=== PATIENT | male | born 1950 | race Two or more races ===

== ENCOUNTER 2021-02-04 16:52 | Emergency (ER) | payer OTHER ==
[~2021-02-04] VITALS: Ht 177.8 cm; Wt 77.1 kg
[2021-02-04 17:45] LABS: Basophils # (auto) 0.2 10 ^3/uL (0-0.2); Basophils % (auto) 2.3 % (0.0-2.0); Eosinophils # (auto) 0.2 10 ^3/uL (0-0.8); Eosinophils % (auto) 1.9 % (0.0-7.0); Hematocrit 48.1 % (41.0-53.0); Hemoglobin 16.3 g/dL (13.5-17.5); Lymphocytes # (auto) 2.8 10 ^3/uL (0.4-5.4); Lymphocytes % (auto) 29.4 % (10.0-50.0); Mean Corpuscular Hemoglobin 33.7 pg (28.0-32.0); Mean Corpuscular Volume 99.4 fL (80.0-100.0); Monocytes # (auto) 0.9 10 ^3/uL (0-1.3); Monocytes % (auto) 9.4 % (0.0-12.0); Neutrophils # (auto) 5.4 10 ^3/uL (1.6-8.6); Nucleated Red Blood Cells % 0.1 %; Red Blood Cells 4.84 10^6/uL (4.5-5.90); Red Cell Distribution Width 13.6 % (11.8-14.3); White Blood Cell 9.5 10^3/uL (4.4-10.8)
[2021-02-04 17:55] LABS: Albumin 3.9 g/dL (3.4-5.0); Anion Gap 4 (5-15); Blood Urea Nitrogen 19 mg/dL (7-18); Calcium 9.1 mg/dL (8.5-10.1); Carbon Dioxide 28 mmol/L (21-32); Chloride 106 mmol/L (98-107); Glucose 92 mg/dL (74-106); Magnesium 2.4 mg/dL (1.6-2.6); Potassium 3.9 mmol/L (3.5-5.1); Sodium 138 mmol/L (136-145)
[2021-02-04 18:01] LABS: Alanine Aminotransferase 28 U/L (16-61); Alkaline Phosphatase 41 U/L (45-117); Aspartate Aminotransferase 17 U/L (15-37); BUN/Creatinine Ratio 16.8; GFR African American 82 mL/min; GFR Non-African American 68 mL/min; Total Protein 7.8 g/dL (6.4-8.2)
[2021-02-04 22:26] VITALS: BP 117/69
== END 2021-02-04 22:32 | disposition home or self-care (01) ==
LOC: ER 16:52
DX: I24.9 Acute ischemic heart disease, unspecified (principal); I10 Essential (primary) hypertension; F17.210 Nicotine dependence, cigarettes, uncomplicated
CPT/HCPCS: 36415; 71045; 80053; 83735; 83880; 84484; 85025; 85379; 93005

== ENCOUNTER 2021-08-16 16:12 | Emergency (ER) | payer OTHER ==
[~2021-08-16] VITALS: Ht 177.8 cm; Wt 80.3 kg
[2021-08-16 16:33] VITALS: BP 163/84
== END 2021-08-16 17:55 | disposition home or self-care (01) ==
LOC: ER 16:15
DX: S16.1XXA Strain of muscle, fascia and tendon at neck level, initial encounter (principal); S39.012A Strain of muscle, fascia and tendon of lower back, initial encounter; S20.212A Contusion of left front wall of thorax, initial encounter; I10 Essential (primary) hypertension; F17.210 Nicotine dependence, cigarettes, uncomplicated; V49.9XXA Car occupant (driver) (passenger) injured in unspecified traffic accident, initial encounter; Y93.89 Activity, other specified; Y92.410 Unspecified street and highway as the place of occurrence of the external cause; Y99.8 Other external cause status
CPT/HCPCS: 71046; 72040; 72100

== ENCOUNTER 2021-11-28 11:34 | Inpatient (IN) | payer OTHER ==
[~2021-11-28] VITALS: Ht 177.8 cm; Wt 86.4 kg
[2021-11-28 15:15] LABS: Basophils # (auto) 0.1 10 ^3/uL (0-0.2); Eosinophils # (auto) 0.5 10 ^3/uL (0-0.8); Monocytes # (auto) 0.8 10 ^3/uL (0-1.3)
[2021-11-28 15:20] LABS: Basophils % (auto) 1.2 % (0.0-2.0); Eosinophils % (auto) 4.9 % (0.0-7.0); Hematocrit 46.2 % (41.0-53.0); Lymphocytes % (auto) 30.3 % (10.0-50.0); Mean Corpuscular Hemoglobin 34.9 pg (28.0-32.0); Mean Corpuscular Hgb Conc. 34.7 g/dL (32.0-36.0); Mean Corpuscular Volume 100.6 fL (80.0-100.0); Monocytes % (auto) 8.4 % (0.0-12.0); Neutrophils # (auto) 5.5 10 ^3/uL (1.6-8.6); Neutrophils % (auto) 55.2 % (37.0-80.0); Nucleated Red Blood Cells % 0.1 %; Red Blood Cells 4.59 10^6/uL (4.5-5.90); Red Cell Distribution Width 13.2 % (11.8-14.3); White Blood Cell 9.9 10^3/uL (4.4-10.8)
[2021-11-28 15:34] LABS: Albumin 3.7 g/dL (3.4-5.0); Potassium 4.4 mmol/L (3.5-5.1)
[2021-11-28 15:37] LABS: Bilirubin, Total 0.8 mg/dL (0.2-1.0); Total Protein 7.5 g/dL (6.4-8.2)
[2021-11-28] MEDS ORDERED: IOHEXOL 350 MG/ML 100ML IJ ONE (18:27)
[2021-11-28 23:49] LABS: Urine Bacteria NONE SEEN /hpf (None Seen); Urine Blood Negative /uL (Negative); Urine WBC <1 /hpf (0 - 3)
[2021-11-28 23:51] LABS: Urine Specific Gravity > 1.050 (1.001-1.035)
[2021-11-29] MEDS ORDERED: MORPHINE SULFATE INJ 2 MG/ml SYRG IV PRN (00:15)
[2021-11-29] MEDS ORDERED: HYDROcodone-ACET 5/325MG TAB PO PRN (00:15)
[2021-11-29] MEDS ORDERED: ATORVASTATIN 20 MG TAB PO ONE (00:15)
[2021-11-29] MEDS ORDERED: NITROGLYCERIN 0.4 MG SL TAB SL PRN (00:15)
[2021-11-29] MEDS ORDERED: ACETAMINOPHEN 325 MG TAB PO PRN (00:15)
[2021-11-29] MEDS ORDERED: ONDANSETRON HCL 4 MG/2 ML VIAL IV PRN (00:15)
[2021-11-29] MEDS ORDERED: DOCUSATE SOD 100 MG CAP PO PRN (00:15)
[2021-11-29] MEDS: D5W/SOD CHL 0.45% 1,000 ML IV SCH ×2 (00:15→16:14)
[2021-11-29] MEDS: ASPirin 81 mg TAB PO SCH ×2 (00:31→10:00)
[2021-11-29] MEDS ORDERED: LORazepam 2MG/ML-1ML VIAL IV ONE (11:45)
[2021-11-29] MEDS ORDERED: HYDR12.56 PO (15:50)
[2021-11-29] MEDS ORDERED: LOSA25TA38 PO (15:50)
[2021-11-29 16:39] VITALS: BP 120/76
[2021-11-29] MEDS ORDERED: SODIUM CHLORIDE 0.9% 1,000 ML IV ONE (16:45)
[2021-11-29] MEDS ORDERED: ASPI-498 OR (16:52)
[2021-11-29 16:53] VITALS: BP 120/76
[2021-11-29] MEDS ORDERED: THIA100T5 PO (16:57)
[2021-11-29] MEDS ORDERED: FOLI1TAB6 PO (16:57)
[2021-11-29 17:00] VITALS: BP 120/76
[2021-11-29] MEDS: ENOXAPARIN SOD 40 MG/0.4 ML SYRINGE SC SCH (17:00)
[2021-11-29] MEDS ORDERED: FOLIC ACID 1 MG, MULTIPLE VITAMIN 10 ML, MAGNESIUM SULF SDV 50% 8 MEQ, THIAMINE INJ 100... INJ SCH ×5 (18:00)
[2021-11-29 19:22] LABS: Cholesterol 128 mg/dL (< 200)
[2021-11-29 19:26] LABS: HDL Cholesterol 42 mg/dL (40-59); LDL Cholesterol 86 mg/dL (< 100); Triglycerides 80 mg/dL (< 150)
[2021-11-29 20:00] VITALS: BP 131/62
[2021-11-29 22:00] VITALS: BP 131/62
[2021-11-29] MEDS ORDERED: ATORVASTATIN 20 MG TAB PO SCH (22:00)
[2021-11-30 05:00] VITALS: BP 104/64
[2021-11-30 06:23] LABS: Basophils # (auto) 0.1 10 ^3/uL (0-0.2); Nucleated Red Blood Cells % 0.1 %; Red Blood Cells 4.03 10^6/uL (4.5-5.90)
[2021-11-30 06:25] LABS: Basophils % (auto) 1.1 % (0.0-2.0); Eosinophils # (auto) 0.6 10 ^3/uL (0-0.8); Hematocrit 40.4 % (41.0-53.0); Hemoglobin 14.1 g/dL (13.5-17.5); Lymphocytes % (auto) 31.9 % (10.0-50.0); Mean Corpuscular Hemoglobin 35.1 pg (28.0-32.0); Mean Corpuscular Volume 100.2 fL (80.0-100.0); Monocytes # (auto) 0.9 10 ^3/uL (0-1.3); Red Cell Distribution Width 13.4 % (11.8-14.3); White Blood Cell 9.5 10^3/uL (4.4-10.8)
[2021-11-30 06:42] LABS: Calcium 8.3 mg/dL (8.5-10.1); Potassium 4.7 mmol/L (3.5-5.1)
[2021-11-30 06:46] LABS: BUN/Creatinine Ratio 21.4
[2021-11-30 09:00] VITALS: BP 125/71
[2021-11-30] MEDS: ASPirin 81 mg TAB PO SCH (09:44)
[2021-11-30] MEDS: ENOXAPARIN SOD 40 MG/0.4 ML SYRINGE SC SCH (09:44)
[2021-11-30 13:00] VITALS: BP 121/70
[2021-11-30] MEDS: D5W/SOD CHL 0.45% 1,000 ML IV SCH (15:34)
[2021-11-30 17:00] VITALS: BP 138/71
[2021-11-30 20:00] VITALS: BP 131/62
== END 2021-11-30 21:00 | disposition home or self-care (01) | DRG 149 ==
LOC: ER 11:34 → TELE 11-29 00:08 → TELE-WESTW 11-29 14:45
PROVIDERS: ADMIT Internal Medicine; ATTEND Internal Medicine
DX: R42 Dizziness and giddiness (principal); Z20.822 Contact with and (suspected) exposure to COVID-19; R26.81 Unsteadiness on feet; I10 Essential (primary) hypertension; Z80.9 Family history of malignant neoplasm, unspecified; Z72.0 Tobacco use; Z72.89 Other problems related to lifestyle; Z71.6 Tobacco abuse counseling
CPT/HCPCS: 36415; 70450; 70496; 70498; 70551; 71045; 80048; 80053; 80061; 81001; 82607; 84425; 84484; 85025; 92610; 93306; 96360; 96372; 97163; G0378

== ENCOUNTER 2023-07-25 07:45 | Emergency (ER) | payer OTHER ==
[~2023-07-25] VITALS: Ht 177.8 cm; Wt 80.6 kg
[~2023-07-25 07:45] MED LIST: ASPI-498 OR; FOLI-119 PO; LOSA25TA15 PO; THIA100T5 PO
[2023-07-25 08:05] VITALS: BP 175/89; PULSE 74; RESP 16; TEMP 98.9; O2SAT 96
[2023-07-25 09:19] LABS: Basophils # (auto) 0.1 10 ^3/uL (0-0.2); Basophils % (auto) 1.4 % (0.0-2.0); Eosinophils # (auto) 0.4 10 ^3/uL (0-0.8); Monocytes # (auto) 0.8 10 ^3/uL (0-1.3); Neutrophils # (auto) 4.3 10 ^3/uL (1.6-8.6); Red Cell Distribution Width 13.7 % (11.8-14.3)
[2023-07-25 09:22] LABS: Eosinophils % (auto) 4.9 % (0.0-7.0); Hematocrit 46.9 % (41.0-53.0); Lymphocytes # (auto) 2.6 10 ^3/uL (0.4-5.4); Lymphocytes % (auto) 31.5 % (10.0-50.0); Mean Corpuscular Hemoglobin 34.5 pg (28.0-32.0); Mean Corpuscular Hgb Conc. 34.1 g/dL (32.0-36.0); Mean Corpuscular Volume 101.2 fL (80.0-100.0); Neutrophils % (auto) 52.2 % (37.0-80.0); Red Blood Cells 4.63 10^6/uL (4.5-5.90); White Blood Cell 8.2 10^3/uL (4.4-10.8)
[2023-07-25 09:24] LABS: Alanine Aminotransferase 20 U/L (7-40); Albumin 4.2 g/dL (3.2-4.8); Alkaline Phosphatase 44 U/L (46-116); Anion Gap 4 (5-15); Aspartate Aminotransferase 23 U/L (13-40); BUN/Creatinine Ratio 12.5 (10.0-20.0); Bilirubin, Total 0.6 mg/dL (0.2-1.0); Blood Urea Nitrogen 13 mg/dL (9-23); Calcium 9.4 mg/dL (8.5-10.1); Carbon Dioxide 28 mmol/L (20-30); Chloride 107 mmol/L (98-107); Glucose 105 mg/dL (74-106); Potassium 4.6 mmol/L (3.5-5.1); Sodium 139 mmol/L (136-145); Total Protein 6.9 g/dL (5.7-8.2)
[2023-07-25 09:28] LABS: Urine Bacteria NONE SEEN /hpf (None Seen); Urine Blood Negative /uL (Negative); Urine Clarity Clear (Clear); Urine Color Yellow (Yellow); Urine Protein, UAD Negative (Negative); Urine Specific Gravity 1.015 (1.001-1.035); Urine WBC 1 /hpf (0 - 3); Urine pH 6.5 (5.0-8.0)
[2023-07-25 09:36] LABS: INR 0.99 (0.9-1.15); Prothrombin Time 10.4 sec (9.3-11.8)
[2023-07-25] MEDS ORDERED: CIPRSUS OT (09:44)
[2023-07-25] MEDS ORDERED: AUG875T PO (09:44)
== END 2023-07-25 09:51 ==
LOC: ER 07:45
DX: R42 Dizziness and giddiness (principal); H65.01 Acute serous otitis media, right ear; I10 Essential (primary) hypertension; F17.210 Nicotine dependence, cigarettes, uncomplicated; Z79.1 Long term (current) use of non-steroidal anti-inflammatories (NSAID); Z79.2 Long term (current) use of antibiotics; Z79.82 Long term (current) use of aspirin; Z79.899 Other long term (current) drug therapy
CPT/HCPCS: 36415; 70450; 71045; 80053; 81001; 85025; 85610

== ENCOUNTER 2025-02-09 21:03 | Inpatient (IN) | payer OTHER ==
[~2025-02-09] VITALS: Ht 177.8 cm; Wt 73.0 kg
[~2025-02-09 21:03] MED LIST changes: +AUG875T PO; +CIPRSUS OT; +LIDO4PAD TOP; +LOSA-533 PO; -LOSA25TA15 PO; +MELO15TA29 PO
--- NOTE | 2025-02-09 22:02 | ED.PDOC ---
HPI (NEURO) HPI Comments 74-year-old male who came to ER for palpitations/blurred vision. Patient has a history of hypertension. States 2 weeks ago, while watching television, he had the sudden onset episode of blurred vision, slurred speech and diaphoresis. Patient had a similar episode 2 days afterwards, and was advised by his primary care provider that he might have a mini-stroke, it was advice close observation. About 2 hours prior to arrival, he was at home, when he developed sudden onset blurring of vision, slurred speech, diaphoresis, tremors, dizziness, frontal headaches. Said symptoms disappeared the moment they arrived at the ER. No unilateral weakness/numbness were noted. Patient recently had an angiogram done REVIEW OF SYSTEMS: General: No fever, no chills, or fatigue HEENT: No sore throat, no earache, no congestion, no neck pain. (+) blurred vision Cardiac: No chest pain. (+) palpitations. Lungs: No shortness of breath, no cough. GI: No nausea, no vomiting, no diarrhea, no constipation, no abdominal pain : No dysuria, frequency, or urgency. No hematuria. Musculoskeletal: No joint pain , no joint swelling, no extremity edema. Skin: No rash, no itching. Neuro: (+) headache, (+) dizziness, no weakness, (+) slurred speech (+) tremors PHYSICAL EXAM: General: Awake, alert and oriented. No acute distress. Skin: Skin in warm, dry and intact. Appropriate color for ethnicity. HEENT: The head is normocephalic and atraumatic. Conjunctivae are clear without exudates or hemorrhage. Sclera is non-icteric. EOM are intact. No signs of nystagmus. Eyelids are normal in appearance without swelling or lesions. Oral mucosa is pink and moist Neck: The neck is supple with normal range of motion. No JVD. Cardiac: Heart rate and rhythm are normal. No murmurs, gallops, or rubs are au scultated. Respiratory: No signs of respiratory distress. Lung sounds are clear in all lobes bilaterally without rales, rhonchi, or wheezes. Abdominal: Abdomen is soft, non-tender without distention, guarding or rigidity. Bowel sounds are present and normoactive in all four quadrants. Extremities: Upper and lower extremities are atraumatic in appearance without deformity or edema. Neurological: The patient is awake, alert and oriented to person, place, and time with normal speech. Speech is clear. There is no facial asymmetry. No upper or lower extremity drift. Psychiatric: Appropriate mood and affect. Good judgement and insight. Chief Complaint: Palpitations Time Seen by MD: 21:59 Primary Care Provider: MICAELA Garcia Notes: Nurses Notes Information Source: Patient, Spouse Mode of Arrival: Ambulatory Severity: Moderate Dizziness/Weakness Severity: Unable to do activities Headache Severity: Moderate Timing: Hours Duration: Minutes Headache Quality: Aching Headache Location: Frontal Onset: With light exertion Circumstances: Spontaneous Symptoms: Vision loss, Slurred speech Associated Signs and Symptoms: Headache, Palpitations, Blurred Vision Past Medical History PAST MEDICAL HISTORY: HTN Surgical History: Hernia Repair Surgical History (Other): Angiogram Family History Family History: Reviewed,noncontributory to illness, Family hx of Cancer Social History Smoker: Non-Smoker Alcohol: Occasionally Drugs: Denies Drug Use Lives In: Home Was a procedure done? Was a procedure done?: No Differential Diagnosis (SZ) CVA: CVA, Electrolyte Imbalance, Encephalopathy, Hypoglycemia, Hypoxemia, TIA X-Ray, Labs, Meds, VS Vital Signs Date Time Temp Pulse Resp B/P (MAP) Pulse Ox O2 Delivery O2 Flow Rate FiO2 02/09/25 23:52 97.3 55 12 113/63 (80) 97 97.3 02/09/25 22:19 52 02/09/25 21:13 97.4 64 14 122/59 92 97.4 02/09/25 21:11 61 Lab Test 02/09/25 22:43 02/09/25 21:52 Range/Units Troponin I High Sensitivity < 3 L 4 </=54 ng/L White Blood Count 12.6 H 4.4-10.8 10^3/uL Red Blood Count 4.36 L 4.5-5.90 10^6/uL Hemoglobin 15.6 13.5-17.5 g/dL Hematocrit 45.7 41.0-53.0 % Mean Corpuscular Volume 104.7 H 80.0-100.0 fL Mean Corpuscular Hemoglobin 35.7 H 28.0-32.0 pg Mean Corpuscular Hemoglobin Concent 34.1 32.0-36.0 g/dL Red Cell Distribution Width 12.9 11.8-14.3 % Platelet Count 245 140-450 10^3/uL Mean Platelet Volume 6.9 6.9-10.8 fL Neutrophils (%) (Auto) 63.4 37.0-80.0 % Lymphocytes (%) (Auto) 24.4 10.0-50.0 % Monocytes (%) (Auto) 6.9 0.0-12.0 % Eosinophils (%) (Auto) 4.2 0.0-7.0 % Basophils (%) (Auto) 1.1 0.0-2.0 % Neutrophils # (Auto) 8.0 1.6-8.6 10 ^3/uL Lymphocytes # (Auto) 3.1 0.4-5.4 10 ^3/uL Monocytes # (Auto) 0.9 0-1.3 10 ^3/uL Eosinophils # (Auto) 0.5 0-0.8 10 ^3/uL Basophils # (Auto) 0.1 0-0.2 10 ^3/uL Nucleated Red Blood Cells 0.1 % Prothrombin Time 10.3 9.3-11.8 sec Prothrombin Time INR 0.97 0.9-1.15 Sodium Level 143 136-145 mmol/L Potassium Level 4.6 3.5-5.1 mmol/L Chloride Level 109 H 98-107 mmol/L Carbon Dioxide Level 30 20-31 mmol/L Anion Gap 4 L 5-15 Blood Urea Nitrogen 15 9-23 mg/dL Creatinine 1.03 0.700-1.30 mg/dL Glomerular Filtration Rate Calc 75 >90 mL/min BUN/Creatinine Ratio 14.6 10.0-20.0 Serum Glucose 92 74-106 mg/dL Calcium Level 9.3 8.7-10.4 mg/dL Total Bilirubin 0.3 0.2-1.0 mg/dL Aspartate Amino Transferase (AST) 20 13-40 U/L Alanine Aminotransferase (ALT) 15 7-40 U/L Alkaline Phosphatase 37 L 46-116 U/L Total Protein 6.7 5.7-8.2 g/dL Albumin 4.5 3.2-4.8 g/dL Current Medications Medications (Trade) Dose Ordered Sig/Celia Route Start Time Stop Time Status Last Admin Aspirin 324 mg ONCE ONCE PO 02/10/25 00:00 02/10/25 00:14 DC 02/10/25 00:21 EXAM: CT HEAD WITHOUT CONTRAST INDICATION: STROKE LIKE SYMPTOMS TECHNIQUE: CT of the head without intravenous contrast. Radiation Dose Information: CT Dose: CTDI volume is 54.9 mGy. Dose-length p roduct is 972.23 mGy*cm The dose indicators for CT are the volume Computed Tomography (CT) Dose Index (CTDIvol) and the Dose Length Product (DLP), and are measured in units of mGy and mGy-cm, respectively. These indicators are not patient dose, but values generated from the CT scanner acquisition factors. The report includes radiation exposure data for exposures received during this examination. COMPARISON: CT HEAD WITHOUT CONTRAST on DOS: 07/25/23, BRAIN HEAD WO CONTRAST on DOS: 11/29/21, HEAD WITHOUT CONTRAST on DOS: 11/28/21 FINDINGS: There is no evidence of acute intracranial hemorrhage, extra-axial collection, mass effect, midline shift, herniation or hydrocephalus. The ventricles, sulci and cisterns are age appropriate. The decker-white differentiation is intact. Patchy periventricular and subcortical white matter hypoattenuation is nonspecific but may be related to small vessel ischemic disease. The visualized paranasal sinuses and mastoid air cells are clear. The surrounding soft tissues and osseous structures are unremarkable. IMPRESSION: 1. No acute intracranial abnormality. : CT ANGIO HEAD/NECK HISTORY: Stroke-like symptoms TECHNIQUE: Helical axial scans of the head and neck obtained during the arterial phase of intravenous contrast enhancement. Multiplanar reformats. Postprocessing MIP and 3-D images. One or more of the following radiation dose reduction techniques were used for this examination: automated exposure control, adjustment of the mA and/or kV according to patient size, use of iterative reconstruction technique. Determination of the degree of stenosis in the internal carotid arteries is obtained using measurements of distal internal carotid diameter (directly or indirectly) as the denominator for stenosis measurement. The method utilized is similar to that utilized in the [place] Symptomatic Carotid Endarterectomy Trial (NASCET) method. If the degree of stenosis is greater than 30%, the actual percentage stenosis is given in the body of the report COMPARISON: CT HEAD WITHOUT CONTRAST on DOS: 02/09/25 FINDINGS: VISUALIZED AORTIC ARCH: The visualized aortic arch appears normal in caliber. The visualized subclavian arteries appear patent. RIGHT CAROTID SYSTEM CERVICAL: Common carotid artery: Moderate to severe atherosclerotic calcifications at the bifurcation. Otherwise patent. Internal carotid artery: Atherosclerotic calcifications at the origin with approximately 50% narrowing. External carotid artery: Patent LEFT CAROTID SYSTEM CERVICAL: Common carotid artery: Moderate to severe atherosclerotic calcifications at the bifurcation. Otherwise patent. Internal carotid artery: Atherosclerotic calcifications at the origin with approximately 70% narrowing. External carotid artery: Patent VERTEBROBASILAR SYSTEM: Right vertebral artery: Patent Left vertebral artery: Patent Basilar artery: Patent RIGHT INTRACRANIAL VASCULATURE Internal carotid artery: [id number] atherosclerotic calcifications of the clinoid segments. Otherwise patent. Middle cerebral artery: Patent Anterior cerebral artery: Patent LEFT INTRACRANIAL VASCULATURE Internal carotid artery: [id number] atherosclerotic calcifications of the clinoid segments. Otherwise patent. Middle cerebral artery: Patent Anterior cerebral artery: Patent IMPRESSION: Moderate to severe atherosclerotic changes of the carotid bulbs and proximal internal carotid arteries as above. Carotid Doppler ultrasound may be obtained to further evaluate. Otherwise no occlusions or aneurysmal dilatations identified involving the cervical and major intracranial arterial vasculature. If there is persistent concern for infarction, MRI is recommended to further evaluate. HS:Y Time of 1ST Reevaluation: 21:54 Reevaluation 1ST: Unchanged Patient Education/Counseling: Other (Need for admission) Family Education/Counseling: Other (Need for admission) Departure 1 Departure Time of Disposition: 21:40 Impression: Primary Impression: Stroke-like symptoms Additional Impression: Carotid stenosis Disposition: ADMITTED INPATIENT Condition: Stable Comments MDM: Patient admitted to hospitalist service for further treatment, evaluation and monitoring. Extensive evaluation was performed in attempt to identify or rule out: (See differential diagnosis section) The following tests were ordered, and results were reviewed by me and discussed with patient and : (See diagnostic results section) The following test were independently interpreted by me: EKG I reviewed and agreed with the following test results read by other providers: N/A I reviewed the following notes from the pt's past medical encounters: N/A Additional information was gathered from interviewing the following independent historians: Patient's Discussion of management or test interpretation with external physician/other qualified health rental boats caretaker: Dr. Rae, neurology Decision regarding hospitalization or escalation of hospital level of care: Risk and benefits of admission for further treatment of patient's condition was considered. Due to patient's current clinical condition, high risk of decline and poor outcome if discharged and need for further inpatient management and monitoring, patient will be admitted to the hospital. Drug therapy requiring intensive monitoring for toxicity: N/A Parenteral controlled substances: N/A Decision regarding elective major surgery with identified patient or procedure risk factors: N/A Decision regarding emergency major surgery: N/A Decision not to resuscitate or to de-escalate care because of poor prognosis: N/A Diagnosis or treatment significantly limited by social determinants of health: N/A Critical Care Note Critical Care Time?: Yes (35 min-critical care time only) Critical care comment: Possible CVA Stability Stability form required: No Heart Score Heart Score: Heart Score Response (Comments) Value History N/A 0 EKG N/A 0 Age N/A 0 Risk Factors N/A 0 Troponin N/A 0 Total 0 I personally scribed for JESSICA CORDERO MD ([email or web address]) on 02/09/25 at 22:02. Electronically submitted by Marcelo Gonzales ([employer]). I personally scribed for JESSICA CORDERO MD ([email or web address]) on 02/09/25 at 22:03. Electronically submitted by Marcelo Gonzales ([employer]). I personally scribed for JESSICA CORDERO MD ([email or web address]) on 02/10/25 at 00:37. Electronically submitted by Marcelo Gonzales ([employer]). JESSICA CORDERO MD Feb 09, 2025 22:02
[2025-02-09 22:08] LABS: Hematocrit 45.7 % (41.0-53.0); Hemoglobin 15.6 g/dL (13.5-17.5); Mean Corpuscular Hemoglobin 35.7 pg (28.0-32.0); Mean Corpuscular Volume 104.7 fL (80.0-100.0); Nucleated Red Blood Cells % 0.1 %
[2025-02-09 22:21] LABS: INR 0.97 (0.9-1.15); Prothrombin Time 10.3 sec (9.3-11.8)
[2025-02-09 22:23] LABS: Alanine Aminotransferase 15 U/L (7-40); Albumin 4.5 g/dL (3.2-4.8); Anion Gap 4 (5-15); BUN/Creatinine Ratio 14.6 (10.0-20.0); Blood Urea Nitrogen 15 mg/dL (9-23); Calcium 9.3 mg/dL (8.7-10.4); Carbon Dioxide 30 mmol/L (20-31); Glucose 92 mg/dL (74-106); Potassium 4.6 mmol/L (3.5-5.1); Sodium 143 mmol/L (136-145); Total Protein 6.7 g/dL (5.7-8.2)
[2025-02-09 22:24] LABS: Bilirubin, Total 0.3 mg/dL (0.2-1.0)
[2025-02-09 22:32] LABS: Alkaline Phosphatase 37 U/L (46-116); Chloride 109 mmol/L (98-107)
--- NOTE | 2025-02-09 22:37 | BSKYNEURO ---
[place] Neuro Note # Demographics Consult Type: Acute Stroke Level 2 (4.5-24 hrs) Patient Location: Emergency Room First Name: Wesley Last Name: Simone Date of : 1950 Age: 74 Gender: Male Facility: [facility] Time of Initial Page (): 02/09/2025 21:36 First Contact with Site (): 02/09/2025 21:36 # HPI Chief Complaint: - speech changes History: 74M with right carotid stenosis presents with slurred speech and diaphoresis, blurry vision. Symptoms lasted about 2 hours, resolved on way to the hospital. On ASA 81 daily # Scores Time of exam and NIHSS (): 02/09/2025 21:47 Level of Consciousness 1a: [0] = Alert; keenly responsive LOC Questions 1b: [0] = Answers both questions correctly LOC Commands 1c: [0] = Performs both tasks correctly Best Gaze 2: [0] = Normal Visual 3: [0] = No visual loss Facial Palsy 4: [0] = Normal symmetrical movements Motor Arm Left 5a: [0] = No drift Motor Arm Right 5b: [0] = No drift Motor Leg Left 6a: [0] = No drift Motor Leg Right 6b: [0] = No drift Limb Ataxia 7: [0] = Absent Sensory 8: [0] = Normal Best Language 9: [0] = No aphasia Dysarthria 10: [0] = Normal Extinction and Inattention 11: [0] = No abnormality NIHSS Total: 0 ABCD2 Score for TIA: [1] = Age >/= 60 years: Yes [1] = BP >/= 140/90: Yes [1] = Clinical features of the TIA: speech disturbances without weakness [2] = Duration of symptoms: >/= 60 minutes [0] = History of diabetes: No ABCD2 Total: 5 # Data Time Head CT personally read by me (): 02/09/2025 22:[address]: - no bleed - preliminarily reviewed by me, please refer to radiology read for official reading # Assessment Impression: - Transient Ischemic Attack High-risk, ABCD 2 score of 5 # Plan Thrombolytic/Intervention: NOT IV Thrombolysis or IA Intervention candidate Thrombolytic/Intraarterial Exclusion: - IV thrombolytic and IA intervention considered but not recommended as this patient's symptoms are not clinically consistent with an assumed diagnosis of [facility] Target Blood Pressure: SBP < 160 Labs: - hemoglobin A1c - lipid panel Imaging: (urgency: STAT): - CT Angiogram Head and CT Angiogram Neck AND call back with results if abnormal Imaging: (urgency: routine): - MRI Brain without contrast Diagnostic Test: - echo without bubble study Therapy/Evaluation: - PT/OT evaluation - speech/swallow consultation Medication: ASA 325 x1 then 81 daily Atorvastatin 80, then tailor to LDL < 70 goal If < 50 % stenosis of cervical ICAs: Plavix 300 x1 then 75 daily (3 weeks DAPT then stop aspirin) DVT Prophylaxis: - SCD - chemical DVT prophylaxis Other: - If patient has any neurological deterioration please call me back immediately - permissive hypertension - telemetry monitoring - I have discussed my recommendations with the referring provider Disposition: admit # Logistics Attestation of consult completion: The patient is located at: [facility]. Facility staff participated in the visit. I performed this telemedicine visit from my offsite office utilizing interactive 2 way audio and visual telecommunication technology at the request of the onsite emergency room provider. Consent: Verbal consent was obtained from the patient and/or family for this encounter. Total time spent in telemedicine encounter: I spent 10 minutes reviewing clinical data and/or imaging, obtaining history, examining the patient, communicating with the onsite care team, and in preparation of this report. Electronically signed at 02/09/2025 22:36 (Bureau Time) by Bert Palomares MD Yes BERT PALOMARES MD Feb 09, 2025 22:37
--- NOTE | 2025-02-09 22:49 | DVH ---
EXAM: CT HEAD WITHOUT CONTRAST INDICATION: STROKE LIKE SYMPTOMS TECHNIQUE: CT of the head without intravenous contrast. Radiation Dose Information: CT Dose: CTDI volume is 54.9 mGy. Dose-length product is 972.23 mGy*cm The dose indicators for CT are the volume Computed Tomography (CT) Dose Index (CTDIvol) and the Dose Length Product (DLP), and are measured in units of mGy and mGy-cm, respectively. These indicators are not patient dose, but values generated from the CT scanner acquisition factors. The report includes radiation exposure data for exposures received during this examination. COMPARISON: CT HEAD WITHOUT CONTRAST on DOS: 07/25/23, BRAIN HEAD WO CONTRAST on DOS: 11/29/21, HEAD WI THOUT CONTRAST on DOS: 11/28/21 FINDINGS: There is no evidence of acute intracranial hemorrhage, extra-axial collection, mass effect, midline s hift, herniation or hydrocephalus. The ventricles, sulci and cisterns are age appropriate. The decker-white differentiation is intact. Patchy periventricular and subcortical white matter hypoattenuation is nonspecific but may be related to small vessel ischemic disease. The visualized paranasal sinuses and mastoid air cells are clear. The surrounding soft tissues and osseous structures are unremarkable. IMPRESSION: 1. No acute intracranial abnormality.
[2025-02-09] MEDS: IOHEXOL 350 MG/ML 100ML IJ ONE (22:55)
--- NOTE | 2025-02-09 23:35 | ECG ---
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
--- NOTE | 2025-02-09 23:35 | ECG ---
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
--- NOTE | 2025-02-09 23:36 | DVH ---
EXAM: CT ANGIO HEAD/NECK HISTORY: Stroke-like symptoms TECHNIQUE: Helical axial scans of the head and neck obtained during the arterial phase of intravenous contrast enhancement. Multiplanar reformats. Postprocessing MIP and 3-D images. One or more of the f ollowing radiation dose reduction techniques were used for this examination: automated exposure contr ol, adjustment of the mA and/or kV according to patient size, use of iterative reconstruction techniq ue. Determination of the degree of stenosis in the internal carotid arteries is obtained using measureme nts of distal internal carotid diameter (directly or indirectly) as the denominator for stenosis jonatan urement. The method utilized is similar to that utilized in the [place] Symptomatic Carotid E ndarterectomy Trial (NASCET) method. If the degree of stenosis is greater than 30%, the actual percen tage stenosis is given in the body of the report COMPARISON: CT HEAD WITHOUT CONTRAST on DOS: 02/09/25 FINDINGS: VISUALIZED AORTIC ARCH: The visualized aortic arch appears normal in caliber. The visualized subclavian arteries appear patent. RIGHT CAROTID SYSTEM CERVICAL: Common carotid artery: Moderate to severe atherosclerotic calcifications at the bifurcation. Otherwi se patent. Internal carotid artery: Atherosclerotic calcifications at the origin with approximately 50% narro wing. External carotid artery: Patent LEFT CAROTID SYSTEM CERVICAL: Common carotid artery: Moderate to severe atherosclerotic calcifications at the bifurcation. Otherwi se patent. Internal carotid artery: Atherosclerotic calcifications at the origin with approximately 70% narro wing. External carotid artery: Patent VERTEBROBASILAR SYSTEM: Right vertebral artery: Patent Left vertebral artery: Patent Basilar artery: Patent RIGHT INTRACRANIAL VASCULATURE Internal carotid artery: [id number] atherosclerotic calcifications of the clinoid segments. Otherwise patent. Middle cerebral artery: Patent Anterior cerebral artery: Patent LEFT INTRACRANIAL VASCULATURE Internal carotid artery: [id number] atherosclerotic calcifications of the clinoid segments. Otherwise patent. Middle cerebral artery: Patent Anterior cerebral artery: Patent IMPRESSION: Moderate to severe atherosclerotic changes of the carotid bulbs and proximal internal carotid arterie s as above. Carotid Doppler ultrasound may be obtained to further evaluate. Otherwise no occlusions or aneurysmal dilatations identified involving the cervical and major intracr anial arterial vasculature. If there is persistent concern for infarction, MRI is recommended to further evaluate. HS:Y
--- NOTE | 2025-02-10 02:57 | DVHHP2 ---
History of Present Illness Reason for Visit: Palpitations History of Present Illness The patient is a 74-year-old male with past medical history of hypertension presented to [facility] ED with complaint of palpitation/blurry vision. Patient reports 2 weeks ago, he had sudden onset episode of blurred vision, slurred speech, and diaphoresis while watching television..He reports similar episode 2 days afterwards and was advised by his primary care provider to go to the ED for possible mini stroke and close observation. Patient reports today experiencing sudden onset blurring of vision, slurred speech, diaphoresis, tremors, dizziness, frontal headaches, but symptoms disappeared the moment they arrived at the ER. Patient was seen and evaluated in the ED, laboratory data shows WBC 12.6, platelets 245, sodium 143, potassium 4.6, BUN 15, creatinine 1.03, glucose 92, troponin 4, blood pressure 113/63, heart rate 55, temperature 97.3 F, O2 saturation 97% on room. Head CT shows no acute intracranial abnormality. Head/neck CT revealing mild to moderate atherosclerotic calcifications of the carotid segments. Please see medication orders section in the computer. On my assessment, patient denies chest pain, no headache, no dizziness, shortness of breath, no diaphoresis, no nausea, no vomiting, no fev er, no chills. Patient was admitted for further evaluation and medical management. Past Medical History Hypertension Past Surgical History Hernia Repair, Angiogram Family History Reviewed, noncontributory to the management of this case. Past Social History The patient lives at home, denies smoking, alcohol or illicit drugs abuse. Review of Systems Constitutional: Yes: Weakness; No: Fever, Chills, Sweats, Malaise, Other Eyes: Other (Blurry vision); No: Pain, Vision change, Conjunctivae inflammation, Eyelid inflammation, Redness ENT: No: Ear pain, Ear discharge, Nose pain, Nose discharge, Nose congestion, Mouth pain, Mouth swelling, Throat pain, Throat swelling, Other Respiratory: No: Cough, Dry, Shortness of breath, SOB with excertion, Wheezing, Hemoptysis, Pleuritic Pain, Sputum, Wheezing, Other Cardiovascular: Palpitations, Lt Headedness; No: Chest Pain, Orthopnea, Paroxysmal Noc. Dyspnea, Edema, Other Gastrointestinal: No: Nausea, Vomiting, Abdominal Pain, Diarrhea, Constipation, Melena, Hematochezia, Other Genitourinary: No Dysuria, No Frequency, No Incontinence, No Hematuria, No Rete ntion, No Other Musculoskeletal: No: other, neck pain, shoulder pain, arm pain, back pain, hand pain, leg pain, foot pain Skin: No: Rash, Lesions, Jaundice, Bruising, Other Neurological: Change in speech; No: Weakness, Numbness, Incoordination, Confusion, Seizures, Other Allergies: Coded Allergies: NO KNOWN ALLERGIES (Unverified , 08/16/21) Exam Vital Signs Vital Signs Date Time Temp Pulse Resp B/P (MAP) Pulse Ox O2 Delivery O2 Flow Rate FiO2 02/09/25 23:52 97.3 55 12 113/63 (80) 97 97.3 General Appearance: Alert, Oriented X3, Cooperative, No acute distress HEENT: Atraumatic, PERRLA, EOMI, Mucous membr. moist/pink Respiratory: Normal air movement Cardiovascular: Regular rate, Normal S1, Normal S2, No murmurs Abdominal: Normal bowel sounds, Soft, No tenderness, No hepatospenomegaly, No masses Extremities: No clubbing, No cyanosis, No edema, Normal pulses, No tenderness/swelling Skin: No rashes, No breakdown, No significant lesion Neuro: Normal speech, Normal tone, Sensation intact, Cranial nerves 3-12 NL, Reflexes 2+ Psych/Mental Status: Mental status NL, Mood NL Labs/Xrays Labs Test 02/09/25 22:43 02/09/25 21:52 Range/Units Troponin I High Sensitivity < 3 L </=54 ng/L White Blood Count 12.6 H 4.4-10.8 10^3/uL Red Blood Count 4.36 L 4.5-5.90 10^6/uL Hemoglobin 15.6 13.5-17.5 g/dL Hematocrit 45.7 41.0-53.0 % Mean Corpuscular Volume 104.7 H 80.0-100.0 fL Mean Corpuscular Hemoglobin 35.7 H 28.0-32.0 pg Mean Corpuscular Hemoglobin Concent 34.1 32.0-36.0 g/dL Red Cell Distribution Width 12.9 11.8-14.3 % Platelet Count 245 140-450 10^3/uL Mean Platelet Volume 6.9 6.9-10.8 fL Neutrophils (%) (Auto) 63.4 37.0-80.0 % Lymphocytes (%) (Auto) 24.4 10.0-50.0 % Monocytes (%) (Auto) 6.9 0.0-12.0 % Eosinophils (%) (Auto) 4.2 0.0-7.0 % Basophils (%) (Auto) 1.1 0.0-2.0 % Neutrophils # (Auto) 8.0 1.6-8.6 10 ^3/uL Lymphocytes # (Auto) 3.1 0.4-5.4 10 ^3/uL Monocytes # (Auto) 0.9 0-1.3 10 ^3/uL Eosinophils # (Auto) 0.5 0-0.8 10 ^3/uL Basophils # (Auto) 0.1 0-0.2 10 ^3/uL Nucleated Red Blood Cells 0.1 % Prothrombin Time 10.3 9.3-11.8 sec Prothrombin Time INR 0.97 0.9-1.15 Sodium Level 143 136-145 mmol/L Potassium Level 4.6 3.5-5.1 mmol/L Chloride Level 109 H 98-107 mmol/L Carbon Dioxide Level 30 20-31 mmol/L Anion Gap 4 L 5-15 Blood Urea Nitrogen 15 9-23 mg/dL Creatinine 1.03 0.700-1.30 mg/dL Glomerular Filtration Rate Calc 75 >90 mL/min BUN/Creatinine Ratio 14.6 10.0-20.0 Serum Glucose 92 74-106 mg/dL Calcium Level 9.3 8.7-10.4 mg/dL Total Bilirubin 0.3 0.2-1.0 mg/dL Aspartate Amino Transferase (AST) 20 13-40 U/L Alanine Aminotransferase (ALT) 15 7-40 U/L Alkaline Phosphatase 37 L 46-116 U/L Total Protein 6.7 5.7-8.2 g/dL Albumin 4.5 3.2-4.8 g/dL PATIENT: KATHLEEN IBRAHIM ACCT: [id number] UNIT: [id number] : 1950 LOC: ER ROOM / BED: / AGE / SEX: 74 / M ADM STATUS: REG ER SERVICE [id number] ORDERING PHYSICIAN: JESSICA CORDERO MD PROCEDURE(s): [place] - ANGIO HEAD/Neck REASON: Stroke-like symptoms ORDER NUMBER(s): [id number], ACCESSION NUMBER(s): [id number] EXAM: CT ANGIO HEAD/NECK HISTORY: Stroke-like symptoms TECHNIQUE: Helical axial scans of the head and neck obtained during the arterial phase of intravenous contrast enhancement. Multiplanar reformats. Postprocessing MIP and 3-D images. One or more of the following radiation dose reduction techniques were used for this examination: automated exposure control, adjustment of the mA and/or kV according to patient size, use of iterative reconstruction technique. Determination of the degree of stenosis in the internal carotid arteries is obtained using measurements of distal internal carotid diameter (directly or indirectly) as the denominator for stenosis measurement. The method utilized is similar to that utilized in the [place] Symptomatic Carotid Endarterectomy Trial (NASCET) method. If the degree of stenosis is greater than 30%, the actual percentage stenosis is given in the body of the report COMPARISON: CT HEAD WITHOUT CONTRAST on DOS: 02/09/25 FINDINGS: VISUALIZED AORTIC ARCH: The visualized aortic arch appears normal in caliber. The visualized subclavian arteries appear patent. RIGHT CAROTID SYSTEM CERVICAL: Common carotid artery: Moderate to severe atherosclerotic calcifications at the bifurcation. Otherwise patent. Internal carotid artery: Atherosclerotic calcifications at the origin with approximately 50% narrowing. External carotid artery: Patent LEFT CAROTID SYSTEM CERVICAL: Common carotid artery: Moderate to severe atherosclerotic calcifications at the bifurcation. Otherwise patent. Internal carotid artery: Atherosclerotic calcifications at the origin with approximately 70% narrowing. External carotid artery: Patent VERTEBROBASILAR SYSTEM: Right vertebral artery: Patent Left vertebral artery: Patent Basilar artery: Patent RIGHT INTRACRANIAL VASCULATURE Internal carotid artery: [id number] atherosclerotic calcifications of the clinoid segments. Otherwise patent. Middle cerebral artery: Patent Anterior cerebral artery: Patent LEFT INTRACRANIAL VASCULATURE Internal carotid artery: [id number] atherosclerotic calcifications of the clinoid segments. Otherwise patent. Middle cerebral artery: Patent Anterior cerebral artery: Patent IMPRESSION: Moderate to severe atherosclerotic changes of the carotid bulbs and proximal internal carotid arteries as above. Carotid Doppler ultrasound may be obtained to further evaluate. Otherwise no occlusions or aneurysmal dilatations identified involving the cervical and major intracranial arterial vasculature. If there is persistent concern for infarction, MRI is recommended to further evaluate. ORDERING PHYSICIAN: JESSICA CORDERO MD PROCEDURE(s): HWOCT - HEAD WITHOUT CONTRAST REASON: STROKE LIKE SYMPTOMS ORDER NUMBER(s): [id number], ACCESSION NUMBER(s): [id number] EXAM: CT HEAD WITHOUT CONTRAST INDICATION: STROKE LIKE SYMPTOMS TECHNIQUE: CT of the head without intravenous contrast. Radiation Dose Information: CT Dose: CTDI volume is 54.9 mGy. Dose-length product is 972.23 mGy*cm The dose indicators for CT are the volume Computed Tomography (CT) Dose Index (CTDIvol) and the Dose Length Product (DLP), and are measured in units of mGy and mGy-cm, respectively. These indicators are not patient dose, but values generated from the CT scanner acquisition factors. The report includes radiation exposure data for exposures received during this examination. COMPARISON: CT HEAD WITHOUT CONTRAST on DOS: 07/25/23, BRAIN HEAD WO CONTRAST on DOS: 11/29/21, HEAD WITHOUT CONTRAST on DOS: 11/28/21 FINDINGS: There is no evidence of acute intracranial hemorrhage, extra-axial collection, mass effect, midline shift, herniation or hydrocephalus. The ventricles, sulci and cisterns are age appropriate. The decker-white differentiation is intact. Patchy periventricular and subcortical white matter hypoattenuation is nonspecific but may be related to small vessel ischemic disease. The visualized paranasal sinuses and mastoid air cells are clear. The surrounding soft tissues and osseous structures are unremarkable. IMPRESSION: 1. No acute intracranial abnormality. SEPSIS Sepsis Screen Date sepsis recognized/suspect: Feb 09, 2025 Time Sepsis recognized/suspect: 2118 Recent Procedure: No On Antibiotic Therapy: No Respiratory Rate >20: No Heart Rate >90: No Temp<36 C (96.8 F) or >38.3 C: No SBP <90 or MAP <65 mmHG: No New Acute Mental Status Change: No Is the patient on CPAP, BIPAP,: No Physician Orders Electrocardigram (02/10/25 00:15) Angio Head/Neck (02/09/25 21:43) Head Without Contrast (02/09/25 22:23) Complete Blood Count (02/10/25 04:00) Comprehensive Metabolic Panel (02/10/25 04:00) Aspirin Tablet (02/10/25 10:00) Admit (02/10/25 02:52) Allergies (02/10/25 02:52) Code Status (02/10/25 02:52) Sodium Chloride Lock (Saline Lock Ns) (02/10/25 06:00) Oxygen Per Hour (02/10/25 02:52) Hydrocodone-Acet 5/325mg Tab ([place] 5/32 (02/10/25 03:00) Ondansetron Hcl (Zofran) (02/10/25 03:00) Docusate Sodium Capsule (Colace Capsule) (02/10/25 03:00) Complete Blood Count (02/11/25 04:00) Comprehensive Metabolic Panel (02/11/25 04:00) Cardiac Diet-2gna,Lofat,Lochol (02/10/25 Breakfast) Condition: Serious (02/10/25 02:52) Acetaminophen Tablet (Tylenol Tablet) (02/10/25 03:00) Bedrest With Bathroom Privileg (02/10/25 02:52) Sequential Compression Device (02/10/25 ) Nitroglycerin Sublingual (Ntrostat Subli (02/10/25 03:00) Morphine Sulfate Injection (02/10/25 03:00) Stat Ekg For Chest Pain (02/10/25 02:52) Notify Md Of Changes From Base (02/10/25 02:52) Checkering Machine Operator For 24 Hours (02/10/25 02:52) Emergency Dysrhythmia Protocol (02/10/25 02:52) Rhythm Strips Once Every Shift (02/10/25 02:52) Oxygen By Nasal Cannula (02/10/25 02:52) Vital Signs Date Time Temp Pulse Resp B/P (MAP) Pulse Ox O2 Delivery O2 Flow Rate FiO2 02/09/25 23:52 97.3 55 12 113/63 (80) 97 97.3 02/09/25 22:19 52 02/09/25 21:13 97.4 64 14 122/59 92 97.4 02/09/25 21:11 61 Laboratory Tests Test 02/09/25 21:52 White Blood Count 12.6 10^3/uL (4.4-10.8) H Medications Medications Dose Ordered Sig/Celia Route Start Time Stop Time Status Last Admin Dose Admin Aspirin 324 mg ONCE ONCE PO 02/10/25 00:00 02/10/25 00:14 DC 02/10/25 00:21 324 MG Assessment/Plan Assessment/Plan Stroke-like symptoms Carotid stenosis Leukocytosis, unspecified Generalized weakness Plan 1. Admit to telemetry unit 2. Breathing treatment 3. Pain control management 4. Management of fluids and electrolytes 5. Consultation for hospitalist 6. Diagnostic tests head CT 7. DVT prophylaxis on aspirin 8. Repeat labs CBC, CMP in a.m. 9. Continue with current medical management 10. Treatment plan discussed with patient and RN. Patient verbalized understanding. Plan discussed with: Patient, Other (RN) My Orders Orders - JAKE MORGAN DNP Procedure Category Date Status Time Complete Blood Count LAB 02/10/25 Transmitted 04:00 Comprehensive LAB 02/10/25 Transmitted Metabolic Panel 04:00 Aspirin Tablet PHA 02/10/25 Transmitted 10:00 Admit ADMIT 02/10/25 Transmitted 02:52 Allergies [facility] 02/10/25 Transmitted 02:52 Code Status CODE 02/10/25 Transmitted 02:52 Sodium Chloride Lock [facility] 02/10/25 Transmitted (Saline Lock Ns) 06:00 Oxygen Per Hour RT 02/10/25 Transmitted 02:52 Hydrocodone-Acet [facility] 02/10/25 Transmitted 5/325mg Tab ([place] 03:00 Ondansetron Hcl [facility] 02/10/25 Transmitted (Zofran) 03:00 Docusate Sodium [facility] 02/10/25 Transmitted Capsule (Colace 03:00 Complete Blood Count LAB 02/11/25 Verified 04:00 Comprehensive LAB 02/11/25 Verified Metabolic Panel 04:00 Cardiac DIET 02/10/25 Transmitted Diet-2gna,Lofat,Lochol Breakfast Condition: Serious [facility] 02/10/25 Transmitted 02:52 Acetaminophen Tablet [facility] 02/10/25 Transmitted (Tylenol Tablet) 03:00 Bedrest With Bathroom [facility] 02/10/25 Transmitted Privileg 02:52 Sequential [facility] 02/10/25 Transmitted Compression Device Nitroglycerin [facility] 02/10/25 Transmitted Sublingual (Ntrostat 03:00 Morphine Sulfate PHA 02/10/25 Transmitted Injection 03:00 Stat Ekg For Chest [facility] 02/10/25 Transmitted Pain 02:52 Notify Of Changes [facility] 02/10/25 Transmitted From Base 02:52 Checkering Machine Operator For [facility] 02/10/25 Transmitted 24 Hours 02:52 Emergency Dysrhythmia [facility] 02/10/25 Transmitted Protocol 02:52 Rhythm Strips Once [facility] 02/10/25 Transmitted Every Shift 02:52 Oxygen By Nasal RT 02/10/25 Transmitted Cannula 02:52 Problem List: (1) Stroke-like symptoms (2) Carotid stenosis (3) Leukocytosis, unspecified (4) Generalized weakness Date of Service: Feb 10, 2025 Billing Provider: JAKE MORGAN DNP Common Visit Codes: [id number] INP/OBS CARE (HIGH) JAKE MORGAN DNP Feb 10, 2025 02:57
[2025-02-10] MEDS ORDERED: DOCUSATE SOD 100 MG CAP PO PRN (03:00)
[2025-02-10] MEDS ORDERED: ONDANSETRON HCL 4 MG/2 ML VIAL IV PRN (03:00)
[2025-02-10] MEDS ORDERED: NITROGLYCERIN 0.4 MG SL TAB SL PRN (03:00)
[2025-02-10] MEDS ORDERED: HYDROcodone-ACET 5/325MG TAB PO PRN (03:00)
[2025-02-10] MEDS ORDERED: ACETAMINOPHEN 325 MG TAB PO PRN (03:00)
[2025-02-10] MEDS ORDERED: MORPHINE SULFATE INJ 2 MG/ml SYRG IV PRN (03:00)
[2025-02-10 03:52] LABS: Nucleated Red Blood Cells % 0.0 %
[2025-02-10 03:55] LABS: Hematocrit 43.0 % (41.0-53.0); Hemoglobin 15.3 g/dL (13.5-17.5); Mean Corpuscular Hemoglobin 36.4 pg (28.0-32.0); Mean Corpuscular Volume 102.3 fL (80.0-100.0)
[2025-02-10 04:17] LABS: Alanine Aminotransferase 15 U/L (7-40); Albumin 4.4 g/dL (3.2-4.8); Alkaline Phosphatase 37 U/L (46-116); Anion Gap 6 (5-15); BUN/Creatinine Ratio 13.5 (10.0-20.0); Bilirubin, Total 0.5 mg/dL (0.2-1.0); Blood Urea Nitrogen 15 mg/dL (9-23); Calcium 9.3 mg/dL (8.7-10.4); Carbon Dioxide 27 mmol/L (20-31); Chloride 108 mmol/L (98-107); Glucose 96 mg/dL (74-106); Potassium 4.8 mmol/L (3.5-5.1); Sodium 141 mmol/L (136-145); Total Protein 6.6 g/dL (5.7-8.2)
[2025-02-10] MEDS: SODIUM CHLOR 0.9% PF (SALINE LOCK) 10ML VIAL/SYR IV SCH (06:32)
[2025-02-10 10:49] VITALS: PULSE 84; RESP 12; O2SAT 98
--- NOTE | 2025-02-10 15:44 | DVHPN2 ---
Assessment/Plan Assessment/Plan progress note 74 M with HTN admitted for TIA. on my assessment patient still have weakness on L side, but NIHSS 0. physical exam aox4 PERRLA EOM normal MMM CN 2-12 intact tongue midline face simetrical clear breath sounds s1 s2 rrr no murmur abdomen soft strength R>L extremity finger to nose intact heel to prado intact sensory intact to touch no LE edema labs ekg imaging reviewed assessment and plan HTN hypertensive heart disease carotid stenosis TIA? vs stroke tele MRI carotid US on asa resume home bp meds echo with bubble diet cardiac dvt ppx lovenox full code crit care time 35 minutes Plan discussed with: Patient My Orders Orders - EDUARDO HENRIQUEZ MD Procedure Category Date Status Time Carotid Duplx W Color US 02/10/25 Verified DOP 15:41 Brain Head Wo Contrast MRI 02/10/25 Verified 15:41 Date of Service: Feb 10, 2025 Billing Provider: EDUARDO HENRIQUEZ MD Common Visit Codes: [id number] CARE 30-74 MIN EDUARDO HENRIQUEZ MD Feb 10, 2025 15:44
[2025-02-10] MEDS: LOSARTAN POTASSIUM 50 MG TAB PO ONE (16:27)
--- NOTE | 2025-02-10 17:18 | DVH ---
PROCEDURE: MRI BRAIN HEAD WO CONTRAST INDICATION: stroke, has plate and screw on neck, after 1999 EXAM DATE: 02/10/2025 04:31 PM COMPARISON: CT HEAD WITHOUT CONTRAST on DOS: 02/09/25, CT HEAD WITHOUT CONTRAST on DOS: 07/25/23, BRAIN HEAD WO CONTRAST on DOS: 11/29/21 TECHNIQUE: MRI of the brain without intravenous contrast. FINDINGS: Diffusion weighted images of the brain demonstrate no evidence of acute infarction. There is no evidence of acute intracranial hemorrhage, extra-axial collection, mass effect, midline s hift, herniation or hydrocephalus. The ventricles, sulci and cisterns appear age appropriate. Mild changes of chronic microvascular ischemic disease. There are no signal abnormalities on the susceptibility weighted sequences. The major vascular flow voids are present. The visualized paranasal sinuses and mastoid air cells are clear. The surrounding soft tissues and o sseous structures are unremarkable. IMPRESSION: 1. No evidence of acute infarction, intracranial hemorrhage, mass effect or hydrocephalus. Mild pearce es of chronic microvascular ischemic disease. HS:Y
--- NOTE | 2025-02-10 18:20 | DVH ---
Carotid Duplex Date: 02/10/2025 05:44 PM Clinical History: stroke Comparison: CT ANGIO HEAD/NECK on DOS: 02/09/25, CT ANGIO NECK W WO CONTRAST on DOS: 11/28/21, ANGIO HEA D WO AND WITH on DOS: 11/28/21 Technique: Duplex Doppler evaluation of the extracranial carotid and vertebral arteries including col or Doppler and spectral/pulsed waveform analysis was performed. Findings: RIGHT SIDE: The peak systolic velocities are 58 cm/s in the distal CCA and 93 cm/s in the proximal ICA.The ICA/CC A ratio is less than 2. The external carotid artery is patent with peak systolic velocity of 90 cm/s proximally. There is appropriate antegrade flow in the right vertebral artery. LEFT SIDE: The peak systolic velocities are 72 cm/s in the distal CCA and 81 cm/s in the proximal ICA.. The ICA/ CCA ratio is less than 2. The external carotid artery is patent with peak systolic velocity of 88 cm/s proximally. There is appropriate antegrade flow in the left vertebral artery. IMPRESSION: 1. No hemodynamically significant stenosis noted in the right carotid system. 2. No hemodynamically significant stenosis noted in the left carotid system. 3. Reference: Radiology 2003; 229:[id number]
[2025-02-10 19:58] VITALS: PULSE 82; RESP 20; O2SAT 94
[2025-02-10 21:04] LABS: Urine Protein, UAD Trace (Negative)
[2025-02-10] MEDS: ATORVASTATIN 20 MG TAB PO SCH (22:02)
[2025-02-11 05:22] LABS: Hemoglobin 13.6 g/dL (13.5-17.5); Nucleated Red Blood Cells % 0.1 %
[2025-02-11 05:24] LABS: Hematocrit 39.2 % (41.0-53.0); Mean Corpuscular Hemoglobin 35.8 pg (28.0-32.0); Mean Corpuscular Volume 103.0 fL (80.0-100.0)
[2025-02-11 05:41] LABS: Alanine Aminotransferase 12 U/L (7-40); Albumin 3.7 g/dL (3.2-4.8); Anion Gap 3 (5-15); BUN/Creatinine Ratio 17.9 (10.0-20.0); Blood Urea Nitrogen 17 mg/dL (9-23); Calcium 8.8 mg/dL (8.7-10.4); Carbon Dioxide 29 mmol/L (20-31); Glucose 97 mg/dL (74-106); Potassium 4.8 mmol/L (3.5-5.1); Sodium 143 mmol/L (136-145)
[2025-02-11 05:42] LABS: Bilirubin, Total 0.5 mg/dL (0.2-1.0)
[2025-02-11 05:51] LABS: Alkaline Phosphatase 30 U/L (46-116); Chloride 111 mmol/L (98-107); Total Protein 5.6 g/dL (5.7-8.2)
[2025-02-11 07:25] VITALS: PULSE 82; RESP 20; O2SAT 94
[2025-02-11] MEDS: LOSARTAN POTASSIUM 50 MG TAB PO SCH (09:43)
[2025-02-11] MEDS ORDERED: ATOR-47 PO (12:28)
[2025-02-11] MEDS ORDERED: LOSA-535 PO (12:28)
[2025-02-11] MEDS ORDERED: CLOP75TA28 PO (12:28)
[2025-02-11] MEDS ORDERED: ASPI-325 PO (12:28)
--- NOTE | 2025-02-11 12:31 | DVHDS2 ---
Discharge Summary Date of Admission Feb 10, 2025 at 02:52 Date of Discharge: Feb 11, 2025 Labs/Diagnostic Data: Laboratory Results Test 02/11/25 05:03 02/10/25 16:22 02/09/25 22:43 02/09/25 21:52 White Blood Count 7.7 10^3/uL (4.4-10.8) Red Blood Count 3.81 10^6/uL (4.5-5.90) Hemoglobin 13.6 g/dL (13.5-17.5) Hematocrit 39.2 % (41.0-53.0) Mean Corpuscular Volume 103.0 fL (80.0-100.0) Mean Corpuscular Hemoglobin 35.8 pg (28.0-32.0) Mean Corpuscular Hemoglobin Concent 34.8 g/dL (32.0-36.0) Red Cell Distribution Width 12.6 % (11.8-14.3) Platelet Count 193 10^3/uL (140-450) Mean Platelet Volume 7.1 fL (6.9-10.8) Neutrophils (%) (Auto) 41.4 % (37.0-80.0) Lymphocytes (%) (Auto) 44.3 % (10.0-50.0) Monocytes (%) (Auto) 7.9 % (0.0-12.0) Eosinophils (%) (Auto) 5.4 % (0.0-7.0) Basophils (%) (Auto) 1.0 % (0.0-2.0) Neutrophils # (Auto) 3.2 10 ^3/uL (1.6-8.6) Lymphocytes # (Auto) 3.4 10 ^3/uL (0.4-5.4) Monocytes # (Auto) 0.6 10 ^3/uL (0-1.3) Eosinophils # (Auto) 0.4 10 ^3/uL (0-0.8) Basophils # (Auto) 0.1 10 ^3/uL (0-0.2) Nucleated Red Blood Cells 0.1 % Sodium Level 143 mmol/L (136-145) Potassium Level 4.8 mmol/L (3.5-5.1) Chloride Level 111 mmol/L (98-107) Carbon Dioxide Level 29 mmol/L (20-31) Anion Gap 3 (5-15) Blood Urea Nitrogen 17 mg/dL (9-23) Creatinine 0.95 mg/dL (0.700-1.30) Glomerular Filtration Rate Calc 83 mL/min (>90) BUN/Creatinine Ratio 17.9 (10.0-20.0) Serum Glucose 97 mg/dL (74-106) Calcium Level 8.8 mg/dL (8.7-10.4) Total Bilirubin 0.5 mg/dL (0.2-1.0) Aspartate Amino Transferase (AST) 16 U/L (13-40) Alanine Aminotransferase (ALT) 12 U/L (7-40) Alkaline Phosphatase 30 U/L (46-116) Total Protein 5.6 g/dL (5.7-8.2) Albumin 3.7 g/dL (3.2-4.8) Urine Color Yellow (Yellow) Urine Clarity Clear (Clear) Urine pH 6.0 (5.0-9.0) Urine Specific Moore > 1.050 (1.001-1.035) Urine Protein Trace (Negative) Urine Ketones Trace (Negative) Urine Blood Negative /uL (Negative) Urine Nitrite Negative (Negative) Urine Bilirubin Negative (Negative) Urine Urobilinogen 1 mg/dL (Negative) Urine Leukocyte Esterase Negative /uL (Negative) Urine RBC None seen /hpf (0 - 3) Urine Microscopic WBC 4 /HPF (0-3) Urine Squamous Epithelial Cells None seen /hpf (<5) Urine Bacteria None seen /hpf (None Seen) Urine Glucose Normal mg/dL (Normal) Troponin I High Sensitivity < 3 ng/L (</=54) Prothrombin Time 10.3 sec (9.3-11.8) Prothrombin Time INR 0.97 (0.9-1.15) Other Laboratory Tests 02/11/25 05:03 Brief Hx & Hospital Course: 74 M with HTN admitted for TIA. on my assessment patient still have weakness on L side, but NIHSS 0. MRI no infarct, cta with b/l carotid stenosis, carotid US with no hemodynamically significant stenosis. started on DAPT, ABCD2 score 5. lipitor high dose. resumed losartan. symptoms resolved completely. no residual. f/u w pcp, c.w dapt 30 days followed by as[facility] lifelong. tele no afib, outpatient holter per pcp. Condition at Discharge: Good Final Diagnosis/Problems List HTN hypertensive heart disease carotid stenosis TIA Discharge Disposition: Home Discharge Instruct/Medications Diet: Consistent carbohydrate, Cardiac 2g Na,low cholest Activity: No Restrictions, As Tolerated Follow Up/Referral: PCP dc clinic Medications: losartan asa plavix for 30 days Scheduled Aspirin (Aspirin Low Dose), 81 MG PO DAILY Atorvastatin Calcium (Atorvastatin Calcium), 1 TAB PO DAILY Clopidogrel Bisulfate (Plavix), 1 TAB PO DAILY Losartan Potassium (Losartan Potassium), 1 TAB PO DAILY Discontinued Medications Amoxicillin & Pot Clavulanate (Augmentin Tablet), 875 MG PO BID Aspirin (Aspirin 81), 81 MG OR, (Reported) Ciprofloxacin-Hydrocortisone (Cipro Hc 0.2-1 %), 4 DROP OT BID Folic Acid (Folic Acid), 1 MG PO DAILY Lidocaine (Lido Tyson), 4 % TOP BID PRN Losartan Potassium (Losartan Potassium), 1 TAB PO DAILY, (Reported) Meloxicam (Meloxicam), 1 TAB PO DAILY PRN Thiamine Hcl (Thiamine Hcl), 100 MG PO DAILY Discharge Statement: "Patient was advised to return to the ER or call 911 if any headaches, dizziness, shortness of breath, chest pain, abdominal pain, bleeding, fevers, or worsening of medical condition. Patient was counseled about treatment plan, medications, possible side effects, patientverbalized understanding. All questions were answered to the best of my ability. This discharge took greater then 30 minutes in planning, reviewing documentation, counseling the patient, and discussing with other team members." ASSESSMENT ASSESSMENT Assessment TIA Date of Service: Feb 11, 2025 Billing Provider: EDUARDO HENRIQUEZ MD Common Visit Codes: [id number] DISCH DAY >30min EDUARDO HENRIQUEZ MD Feb 11, 2025 12:31
[2025-02-11 13:09] VITALS: BP 107/55; PULSE 68; RESP 14; TEMP 98.2; O2SAT 95
--- NOTE | 2025-02-12 10:04 | DVHSR ---
APPROVED REPORT EXAM: Two-dimensional and M-mode echocardiogram with Doppler and color Doppler. Blood Pressure: 110/57 mmHg INDICATION Stroke RISK FACTORS Height: 5' 10", Weight: 160 DIMENSIONS LVDd4.8 (3.8-5.7cm)LA (2D)3.5 (1.9-4.0cm)Aortic Root3.6 (2.0-3.7cm) LVDs3.4 (2.5-4.0cm)LA (MM) (1.9-4.0cm)Aortic Cusp Exc1.9 (1.5-2.0cm) EF (%) 56.0 (55-70%)Rt. Atrium3.7 (1.9-4.0cm)Asc. Aorta cm IVSd1.1 (0.7-1.1cm)RV (D) (1.8-2.4cm) PWd1.1 (0.7-1.1cm) Mitral Valve MitralMitral Stenosis E wave0.90m/sMV Mean GR.mmHg A wave0.80m/sMV Peak GR.mmHg E/A ratio1.12D MVAcm2 Aortic Valve Aortic ValveAortic Stenosis V11.00m/Ludy Mean GR.5mmHg V21.60m/Ludy Peak GR.10mmHg LVOT Diameter2.2 (1.8-2.4cm)Doppler AVA2.37cm2 Conclusion lvef 60% borderline LVH normal rv function normal atria no severe valve abnormalities noted normal pericardium
== END 2025-02-11 13:21 | disposition home or self-care (01) | DRG 68 ==
LOC: ER 21:03 → OVERFLOW 02-10 02:52
PROVIDERS: ADMIT Student in an Organized Health Care Education/Training Program; ATTEND Student in an Organized Health Care Education/Training Program
DX: I65.29 Occlusion and stenosis of unspecified carotid artery (principal); I11.9 Hypertensive heart disease without heart failure; D72.829 Elevated white blood cell count, unspecified; R29.700 NIHSS score 0; Z79.899 Other long term (current) drug therapy
CPT/HCPCS: 36415; 70450; 70496; 70498; 70551; 80053; 81001; 82607; 82746; 84484; 85025; 85610; 93005; 93306; 93886; 99291; G0378